=== PATIENT | female | born 1990 | race Two or more races ===

== ENCOUNTER 2024-03-28 10:00 | Emergency (ER) | payer MEDICAID ==
[~2024-03-28] VITALS: Ht 162.6 cm; Wt 83.2 kg
[2024-03-28 10:47] VITALS: BP 144/87; PULSE 82; RESP 16; TEMP 98.8; O2SAT 98
[2024-03-28 11:46] LABS: Vaginal Bacteria Many; Vaginal Clue Cells None Seen; Vaginal Epithelial Cells Many; Vaginal Trichomonas Not Present
[2024-03-28] MEDS ORDERED: METR-344 PO (11:51)
== END 2024-03-28 11:58 | disposition home or self-care (01) ==
LOC: ER 10:00
DX: N76.0 Acute vaginitis (principal)
CPT/HCPCS: 87210